=== PATIENT | male | born 1995 | race Caucasian/White ===

== ENCOUNTER 2016-10-07 11:01 | Emergency (ER) | payer MEDICARE, OTHER ==
[~2016-10-07] VITALS: Wt 60.0 kg
[~2016-10-07 11:01] MED LIST: ACET-2047 GTB; ALBU2.5V3 NEB; AZIT200S49 PO; CHLO118L3 TOP; DULR PR; FAMO-95 GTB; LORA-444 GTB; MAG355OR31 GTB; MAGN400O4 PO; MULT-552 GTB; OXYC5CAP17 GTB; PROP40TA4 GTB; UDCOL GTB
== END 2016-10-07 16:28 | disposition left against medical advice (07) ==
LOC: E/R 11:01
DX: Z53.21 Procedure and treatment not carried out due to patient leaving prior to being seen by health care provider (principal)

== ENCOUNTER 2017-01-20 09:12 | Emergency (ER) | payer MEDICARE, OTHER ==
[~2017-01-20] VITALS: Ht 177.8 cm; Wt 68.0 kg
[~2017-01-20 09:12] MED LIST changes: +BISA10SU75 PR; -DULR PR
[2017-01-20 09:14] VITALS: Ht 177.8 cm; Wt 68.0 kg
[2017-01-20] MEDS ORDERED: HYDR-902 GTB (10:52)
[2017-01-20] MEDS ORDERED: LOPE1LIQ32 GTB (10:54)
[2017-01-20] MEDS ORDERED: BISM262O PO (10:56)
[2017-01-20] MEDS ORDERED: LEVE100018 GTB (10:57)
[2017-01-20] MEDS ORDERED: METAM GTB (10:59)
[2017-01-20] MEDS ORDERED: D-ME473S2 GTB (11:00)
[2017-01-20] MEDS ORDERED: PROM5SYR2 PO (11:01)
[2017-01-20] MEDS ORDERED: PROP40SO PO (11:04)
[2017-01-20] MEDS ORDERED: ZNO30OI TOP (11:06)
[2017-01-20] MEDS ORDERED: DIATR MEGLU/DIATRIZOATE SODIUM 120 ML BTL ONE (11:51)
--- NOTE | 2017-01-20 12:26 | RADRPT ---
PROCEDURE: Gastrostomy tube check CLINICAL INDICATION: Gastrostomy tube placement.. TECHNIQUE: Single frontal view of the abdomen was obtained after injecting 40 cc of gastrographin through existing gastrostomy tube. COMPARISON: G tube check 01/12/2015 FINDINGS: Contrast is identified within the gastric lumen and proximal duodenum. There is no evidence of extr avasated contrast. There is no evidence of large or small bowel obstruction. IMPRESSION: 1. Gastrostomy tube within the gastric lumen. RPTAT: KK .Saurabh Chance MD, MD Date Time Electronically viewed and signed by .Saurabh Chance MD, on 01/20/2017 12:26 .B/
--- NOTE | 2017-01-20 12:42 | ERD ---
ER Documentation Chief Complaint Date/Time DATE: 01/20/17 TIME: 12:33 Chief Complaint trached pt with a gt tube that is bleeding around stoma and has diarrhea HPI This is a 21-year-old male who presents to the emergency room for evaluation of a PEG tube that is clogged and is "dirty". History is obtained from the patient 's caregiver and the patient's family was at bedside. This patient does have a history cognitive deficits, and necessity for trach ileostomy, PEG tube. According to family members the PEG tube has been dirty and has had intermittent clotting. The patient has also had nonbloody diarrhea for the past 2 days. ROS All systems reviewed and are negative except as per history of present illness. Medications Home Meds Reported Medications Zinc Oxide* (Zinc Oxide*) 20%-30GM Oint, 1 APPLIC TOP BID, TUB 10% APPLY TO GT STOMA 01/20/17 Propranolol Hcl (Propranolol Hcl) 40 Mg/5 Ml Solution, 40 MG PO Q12 Y for ELEVATED BLOOD PRESSURE, ML hold for sbp below 100 01/20/17 Promethazine HCl/Codeine (Prometh-Codein 6.25-10 mg/5 ml) 5 Ml Syrup, 5 ML PO TID Y for COUGH 01/20/17 Dextromethorphan Hb-Promethazine Hcl* (Promethazine DM* Syrup) 473 Ml Syrup, 5 ML GTB TID Y for COUGH, ML 01/20/17 Psyllium* (Metamucil*) 1 Pkt Susp, 1 PKT GTB BID, PACKET DISOLVE IN 8oz of water 01/20/17 Levetiracetam* (Keppra*) 1,000 Mg Tablet, 2000 MG GTB BID, TAB 01/20/17 Bismuth Subsalicylate* (Kaopectate*) 262 Mg/15 Ml Oral.susp, 30 ML PO EVERY HOUR Y for LOOSE BM, ML MAX 8 DOSES PER DAY 01/20/17 Loperamide Hcl (Imodium A-D) 1 Mg/7.5 Ml Liquid, 15-30 MG GTB PRN, ML 01/20/17 Hydrocodone/Acetaminophen (Rhododendron 10-325 Tablet) 1 Each Tablet, 1 EACH GTB Q12 Y for PAIN, TAB 01/20/17 Chlorhexidine Gluconate* (Chlorhexidine Gluconate*) 118 Ml Liquid, 118 ML TOP BID, ML 01/12/15 Multivitamins* (Once Daily*) 1 Tab Tablet, 1 TAB GTB DAILY, TAB 01/12/15 Famotidine* (Pepcid* AC) 20 Mg Tablet, 20 MG GTB DAILY 03/02/14 Discontinued Reported Medications Albuterol Sulfate* (Albuterol Sulfate* Neb) 0.083%-3 Ml Neb, 1.25 MG NEB Q4H Y for SHORTNESS OF BREATH, EA 01/12/15 Magnesium Hydroxide* (Milk Of Magnesia*) 400 Mg/5 Ml Oral.susp, 30 ML PO DAILY Y for CONSTIPATION, ML 01/12/15 Acetaminophen* (Acetaminophen*) 650 Mg Tablet, 650 MG GTB Q6 Y for FEVER GREATER THAN 100.6, TAB 01/12/15 Mag Hydrox/Al Hydrox/Simeth (Almacone Liquid) 355 Ml Oral.susp, 30 ML GTB Q4 Y for upset stomach 01/12/15 Propranolol Hcl* (Propranolol Hcl*) 40 Mg Tablet, 40 MG GTB DAILY, TAB 01/12/15 Oxycodone Hcl* (IR) (Oxycodone Hcl*) 5 Mg Capsule, 10 MG GTB Q4H Y for PAIN LEVEL 6-10, CAP 01/12/15 Lorazepam* (Ativan*) 2 Mg Tablet, 2 MG GTB Q4 Y for ANXIETY, TAB 01/12/15 Bisacodyl* (Bisacodyl*) 10 Mg Supp, 10 MG NM HS 03/02/14 Docusate Sodium* (Docusate Sodium* Liq) 50 Mg/5 Ml Liquid, 100 MG GTB BID 03/02/14 Discontinued Scripts Azithromycin* (Azithromycin*) 200 Mg/5 Ml Susp.recon, 200 MG PO DAILY for 6 Days , #1 BOTTLE Prov:STEVENSON NIEVES PA-C 07/21/16 Allergies Allergies: Coded Allergies: No Known Drug Allergy (Verified Allergy, Mild, 01/20/17) PMhx/Soc History of Surgery: Yes (BRAIN SURGERY AFTER RUPTURE OF BLOOD VESSESL. TRACH. GTUBE) Anesthesia Reaction: No Hx Respiratory Disorders: Yes (PNEUMONIA, TRACH.) Hx Cardiac Disorders: No Hx Psychiatric Problems: No Hx Miscellaneous Medical Probl: Yes (AVM) Hx Alcohol Use: No Hx Substance Use: No Hx Tobacco Use: No Smoking Status: Never smoker Physical Exam Vitals Vital Signs Date Time Temp Pulse Resp B/P Pulse Ox O2 Delivery O2 Flow Rate FiO2 01/20/17 11:49 98.6 86 22 112/76 97 Room Air 01/20/17 09:14 98.0 89 18 158/61 94 Physical Exam INITIAL VITAL SIGNS: Reviewed by me GENERAL: The patient is well developed and appropriate for usual state of health in no apparent distress HEENT: Pupils equal, round, and reactive to light. EOMI. There is no scleral icterus. NECK: Tracheostomy in place, C-spine is soft and supple, there is no meningismus. There is no cervical lymphadenopathy. LUNGS: Clear to auscultation bilaterally. There are no rales, wheezes or rhonchi. HEART: Regular rate and rhythm, no murmurs, clicks, rubs or gallops. ABDOMEN: PEG tube in place soft, non-tender, non-distended. There are bowel sounds in all four quadrants. No rebound or guarding. EXTREMITIES: There is no peripheral cyanosis or edema. No focal swelling or erythema. NEUROLOGICAL: The patient has contracted extremities SKIN: There is no apparent rash or petechiae. HEME/LYMPHATIC: There is no evidence of excessive bruising or lymphedema. PSYCHIATRIC: The patient does not appear anxious or depressed. Results 24 hrs Current Medications Medications (Trade) Dose Ordered Sig/Isaac Route PRN Reason Start Time Stop Time Status Last Admin Dose Admin Diatrizoate Meglum/ Diatrizoate Sod (Gastrografin 66-10 Solution) 120 ml STK-MED ONCE .ROUTE 01/20/17 11:51 01/20/17 11:52 DC Procedures/MDM G-tube Insertion by me: Sterile technique, local prep and lubrication, time out performed. Location: Epigastrum Device: 18 English G-tube Technique: Kiko pressure with twisting motion. Balloon inflation Results: Gastric contents expressed. Compl: none X-ray Abdomen 1V Interpreted by me: Free Air: None Bowel Gas: Nonspecific Contrast: Intraluminal This 21-year-old male presents to the emergency room for a PEG tube replacement. When I evaluated this patient he appeared to have an old approximately [address]. I did replace a PEG tube. X-ray was obtained after placement which does confirm correct placement. This patient will be discharged at this time. Patient tolerated procedure well and is in no acute distress Departure Diagnosis: Primary Impression: Status post insertion of percutaneous endoscopic gastrostomy (PEG) tube Additional Impression: PEG tube malfunction Condition: Stable ANEUDY TREVINO DO Jan 20, 2017 12:42
[2017-01-20 13:13] VITALS: BP 118/68; PULSE 80; RESP 19; TEMP 98.7
== END 2017-01-20 13:16 | disposition home or self-care (01) ==
LOC: E/R 09:12
DX: K94.23 Gastrostomy malfunction (principal)
CPT/HCPCS: 74000

== ENCOUNTER 2017-05-20 20:54 | Inpatient (IN) | payer MEDICARE, OTHER ==
[~2017-05-20] VITALS: Ht 167.6 cm; Wt 75.9 kg
[~2017-05-20 20:54] MED LIST changes: -ACET-2047 GTB; -ALBU2.5V3 NEB; -AZIT200S49 PO; -BISA10SU75 PR; +BISM262O PO; +D-ME473S2 GTB; +HYDR-902 GTB; +LEVE100018 GTB; +LOPE1LIQ32 GTB; -LORA-444 GTB; -MAG355OR31 GTB; -MAGN400O4 PO; +METAM GTB; -OXYC5CAP17 GTB; +PROM5SYR2 PO; +PROP40SO PO; -PROP40TA4 GTB; -UDCOL GTB; +ZNO30OI TOP
[2017-05-20 21:30] VITALS: TEMP 98.5
--- NOTE | 2017-05-20 22:11 | ERD ---
ER Documentation Chief Complaint Chief Complaint gtube came out today HPI The patient is 22-year-old male, presenting to the ER because he accidentally pulled up to acute a few hours prior to arrival. He is unable to provide history, the history is obtained from the mother. Past medical history: Hypertension, seizure disorder, chronic respiratory failure Past surgical history: Tracheostomy, craniotomy due to ruptured AVM ROS All systems reviewed and are negative except as per history of present illness. Medications Home Meds Reported Medications Propranolol HCl (Propranolol HCl) 20 Mg/5 Ml Solution, 20 ML GTB Q8H 05/20/17 Levetiracetam (LEVETIRACETAM) 100 Mg/1 Ml Solution, 20 ML GTB BID, ML 05/20/17 Albuterol Sulfate* (Albuterol Sulfate* Neb) 0.083%-3 Ml Neb, 1.25 MG NEB TID Y for WHEEZING AND SOB, #30 VIAL 05/20/17 Famotidine* (Pepcid* AC) 20 Mg Tablet, 20 MG GTB BID 03/02/14 Discontinued Reported Medications Zinc Oxide* (Zinc Oxide*) 20%-30GM Oint, 1 APPLIC TOP BID, TUB 10% APPLY TO GT STOMA 01/20/17 Propranolol Hcl (Propranolol Hcl) 40 Mg/5 Ml Solution, 40 MG PO Q12 Y for ELEVATED BLOOD PRESSURE, ML hold for sbp below 100 01/20/17 Promethazine HCl/Codeine (Prometh-Codein 6.25-10 mg/5 ml) 5 Ml Syrup, 5 ML PO TID Y for COUGH 01/20/17 Dextromethorphan Hb-Promethazine Hcl* (Promethazine DM* Syrup) 473 Ml Syrup, 5 ML GTB TID Y for COUGH, ML 01/20/17 Psyllium* (Metamucil*) 1 Pkt Susp, 1 PKT GTB BID, PACKET DISOLVE IN 8oz of water 01/20/17 Levetiracetam* (Keppra*) 1,000 Mg Tablet, 2000 MG GTB BID, TAB 01/20/17 Bismuth Subsalicylate* (Kaopectate*) 262 Mg/15 Ml Oral.susp, 30 ML PO EVERY HOUR Y for LOOSE BM, ML MAX 8 DOSES PER DAY 01/20/17 Loperamide Hcl (Imodium A-D) 1 Mg/7.5 Ml Liquid, 15-30 MG GTB PRN, ML 01/20/17 Hydrocodone/Acetaminophen (Barnett 10-325 Tablet) 1 Each Tablet, 1 EACH GTB Q12 Y for PAIN, TAB 01/20/17 Chlorhexidine Gluconate* (Chlorhexidine Gluconate*) 118 Ml Liquid, 118 ML TOP BID, ML 01/12/15 Multivitamins* (Once Daily*) 1 Tab Tablet, 1 TAB GTB DAILY, TAB 01/12/15 Allergies Allergies: Coded Allergies: No Known Drug Allergy (Verified Allergy, Mild, 05/20/17) PMhx/Soc History of Surgery: Yes (BRAIN SURGERY AFTER RUPTURE OF BLOOD VESSESL. TRACH. GTUBE) Anesthesia Reaction: No Hx Respiratory Disorders: Yes (PNEUMONIA, TRACH.) Hx Cardiac Disorders: No Hx Psychiatric Problems: No Hx Miscellaneous Medical Probl: Yes (AVM) Hx Alcohol Use: No Hx Substance Use: No Hx Tobacco Use: No Smoking Status: Never smoker Physical Exam Vitals Vital Signs Date Time Temp Pulse Resp B/P Pulse Ox O2 Delivery O2 Flow Rate FiO2 05/20/17 21:30 98.5 101 16 110/50 98 Room Air 05/20/17 20:56 98.6 100 18 115/69 96 Physical Exam Const: No acute distress. Head: Atraumatic. Eyes: Normal Conjunctiva. ENT: Normal External Ears, Nose and Mouth. Neck: Full range of motion. No meningismus.Tracheostomy Resp: Clear to auscultation bilaterally. Cardio: Regular rate and rhythm. Abd: Soft, non distended, normal bowel sounds, non tender.Stoma was closed with scar tissue Skin: No petechiae or rashes. Back: No midline or flank tenderness. Ext: No cyanosis, or edema. Neur: Limited due to his condition Psych: Unable to perform due to his condition. Results 24 hrs Current Medications Medications (Trade) Dose Ordered Sig/Isaac Route PRN Reason Start Time Stop Time Status Last Admin Dose Admin Sodium Chloride (NS) 1,000 ml @ 1,000 mls/hr Q1H ONCE IV 05/20/17 23:30 05/21/17 00:29 Morphine Sulfate (morphine) 2 mg ONCE ONCE IV 05/20/17 23:30 05/20/17 23:31 Ondansetron HCl (Zofran Inj) 4 mg ONCE STAT IV 05/20/17 23:04 05/20/17 23:05 DC Procedures/MDM Diagnostic labs are pending MEDICAL MAKING DECISION: The patient is a 32-year-old male, presenting with acute dislodgment after his G-tube, acute dehydration. He was treated with 1 L normal saline for clinical dehydration, morphine 2 mg IV for his generalized pain, Zofran 4 mg IV for nausea with good response. X Procedure: I have attempted to replace reinsert the gastrostomy tube but unsuccessful because the stoma was already close, unable to advance the gT-tube Departure Diagnosis: Primary Impression: Dislodged gastrostomy tube Additional Impression: Dehydration Condition: Stable Comments I discussed the findings with the patient. I discussed the patient with the on- call hospitalist Dr. Newsome at 11:10 PM who was made aware of the lab, the treatment, the patient condition. The patient is admitted to [facility] for 24 hour observation for GI evaluation and placement of the G-tube NORMAN MARTÍNEZ MD May 20, 2017 22:11
[2017-05-20] MEDS ORDERED: ALBU2.5V3 NEB (22:29)
[2017-05-20] MEDS ORDERED: LEVE100S GTB (22:31)
[2017-05-20] MEDS ORDERED: [UNRECOGNIZED DRUG - CODE] GTB (22:32)
[2017-05-20] MEDS ORDERED: ONDANSETRON 4 MG INJ IV STA (23:04)
[2017-05-20 23:26] LABS: BASOPHILS % 0.3 % (0.0-2.0); EOSINOPHILS # 0.3 10^3/ul (0.0-0.5); EOSINOPHILS % 3.3 % (0.0-7.0); HEMATOCRIT 44.3 % (42.0-52.0); HEMOGLOBIN 15.5 g/dl (14.0-18.0); LYMPHOCYTES # 2.5 10^3/ul (0.8-2.9); LYMPHOCYTES % 26.7 % (15.0-51.0); MEAN CORPUSCULAR HEMOGLOBIN 31.3 pg (29.0-33.0); MEAN CORPUSCULAR VOLUME 89.3 fl (82.0-101.0); NEUTROPHIL # 5.5 10^3/ul (1.6-7.5); NEUTROPHILS % 58.2 % (39.0-77.0); PLATELET COUNT 321 10^3/UL (140-415); RED BLOOD COUNT 4.96 10^6/ul (4.70-6.10); RED CELL DISTRIBUTION WIDTH 11.4 % (11.5-14.5); WHITE BLOOD COUNT 9.5 10^3/ul (4.8-10.8)
[2017-05-20] MEDS ORDERED: morphine 2 MG INJ IV ONE (23:30)
[2017-05-20] MEDS ORDERED: SOD CHLORIDE 0.9% 1,000 ML IV ONE (23:30)
[2017-05-20 23:44] LABS: INR 0.89; PT RATIO 0.9
[2017-05-20 23:45] LABS: PARTIAL THROMBOPLASTIN TIME 31.6 Sec (25.0-35.0)
[2017-05-20 23:50] LABS: CALCIUM 9.8 mg/dl (8.4-10.2); CREATININE 0.73 mg/dl (0.61-1.24)
[2017-05-21] VITALS (10 sets, daily range): BP systolic 95–110; BP diastolic 52–73; PULSE 88–106; RESP 16–24; Ht 167.6 cm; Wt 75.9 kg
[2017-05-21] MEDS ORDERED: NACL 0.9% 3 ML SYG IV SCH
[2017-05-21] MEDS ORDERED: morphine 2 MG INJ IV PRN
[2017-05-21] MEDS: SOD CHLORIDE 0.9% 1,000 ML IV SCH ×2 (01:25→13:14)
[2017-05-21] MEDS: FAMOTIDINE 20 MG INJ IV SCH ×3 (01:26→21:18)
[2017-05-21] MEDS: LEVETIRACETAM 1500 MG (PMX) 100 ML IVPB SCH ×3 (01:26→21:18)
[2017-05-21] MEDS: morphine 2 MG INJ IV PRN ×2 (01:27→10:21)
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
[2017-05-21] MEDS ORDERED: ALBUTEROL 0.083% (NEB) 2.5 MG/3 ML AMP NEB PRN (02:30)
[2017-05-21 06:22] LABS: BASOPHILS % 0.4 % (0.0-2.0); EOSINOPHILS # 0.3 10^3/ul (0.0-0.5); EOSINOPHILS % 3.5 % (0.0-7.0); HEMATOCRIT 44.6 % (42.0-52.0); HEMOGLOBIN 15.3 g/dl (14.0-18.0); LYMPHOCYTES # 2.4 10^3/ul (0.8-2.9); MEAN CORPUSCULAR HEMOGLOBIN 31.7 pg (29.0-33.0); MEAN CORPUSCULAR HGB CONC 34.3 g/dl (32.0-37.0); MEAN CORPUSCULAR VOLUME 92.3 fl (82.0-101.0); MEAN PLATELET VOLUME 9.2 fl (7.4-10.4); MONOCYTE # 0.9 10^3/ul (0.3-0.9); MONOCYTES % 10.1 % (0.0-11.0); NEUTROPHIL # 5.4 10^3/ul (1.6-7.5); NEUTROPHILS % 59.4 % (39.0-77.0); PLATELET COUNT 291 10^3/UL (140-415); RED BLOOD COUNT 4.83 10^6/ul (4.70-6.10); RED CELL DISTRIBUTION WIDTH 11.5 % (11.5-14.5); WHITE BLOOD COUNT 9.1 10^3/ul (4.8-10.8)
[2017-05-21 06:56] LABS: ALBUMIN 3.8 g/dl (3.3-4.9); ALBUMIN/GLOBULIN RATIO 1.05; BILIRUBIN,INDIRECT 0.3 mg/dl (0-1.1); BILIRUBIN,TOTAL 0.3 mg/dl (0.2-1.3); CALCIUM 9.2 mg/dl (8.4-10.2); CREATININE 0.81 mg/dl (0.61-1.24); POTASSIUM 4.5 mmol/L (3.5-5.1); TOTAL PROTEIN 7.4 g/dl (6.1-8.1)
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
[2017-05-21] MEDS: SOD CHLORIDE 0.45% 1,000 ML IV SCH (14:48)
[2017-05-21] MEDS ORDERED: HYDROmorphONE (0.2 MG/ML) 10ML SYG IV PRN (17:30)
[2017-05-21] MEDS ORDERED: LIDOCAINE 2% (SDV) 5 ML INJ ONE (17:30)
[2017-05-21] MEDS ORDERED: ONDANSETRON 4 MG INJ IV PRN ×2 (17:30)
[2017-05-21] MEDS ORDERED: PROPOFOL 20 ML ONE (17:30)
[2017-05-21] MEDS ORDERED: MIDAZOLAM 1 MG/ML 2 ML INJ ONE (17:31)
--- NOTE | 2017-05-21 17:59 | OPPN ---
Date/Time of Note Date/Time of Note DATE: 05/21/17 TIME: 17:53 Proc Note GI Procedure Date 05/21/17 Indication: other Pre-procedure Diagnosis dysphagia Post-procedure Diagnosis same Procedure Performed: Endoscopy, Other (percutaneous endoscopic gastrostomy) Surgeon see signature line Metal Filer none Anesthesia Type: MAC Anesthesiologist: JUSTYN CHATTERJEE MD Tourniquet Time none EBL none Transfusion required none Biopsy 1: none Grafts/Implants none Tubes/Drains none Complication(s) none Procedure Description egd peg done under GARY KUNZ MD May 21, 2017 17:59
[2017-05-22 02:00] VITALS: BP 97/53; RESP 18
[2017-05-22 03:20] VITALS: BP 92/58; PULSE 105
[2017-05-22] MEDS: SOD CHLORIDE 0.45% 1,000 ML IV SCH ×2 (03:20→06:13)
[2017-05-22 07:29] LABS: BASOPHILS % 0.2 % (0.0-2.0); EOSINOPHILS # 0.1 10^3/ul (0.0-0.5); EOSINOPHILS % 1.4 % (0.0-7.0); HEMATOCRIT 40.1 % (42.0-52.0); LYMPHOCYTES # 1.4 10^3/ul (0.8-2.9); MEAN CORPUSCULAR HEMOGLOBIN 31.6 pg (29.0-33.0); MEAN CORPUSCULAR HGB CONC 34.9 g/dl (32.0-37.0); MEAN CORPUSCULAR VOLUME 90.5 fl (82.0-101.0); MEAN PLATELET VOLUME 9.2 fl (7.4-10.4); MONOCYTES % 10.5 % (0.0-11.0); NEUTROPHIL # 6.9 10^3/ul (1.6-7.5); NEUTROPHILS % 72.5 % (39.0-77.0); PLATELET COUNT 278 10^3/UL (140-415); RED BLOOD COUNT 4.43 10^6/ul (4.70-6.10); RED CELL DISTRIBUTION WIDTH 11.4 % (11.5-14.5); WHITE BLOOD COUNT 9.5 10^3/ul (4.8-10.8)
[2017-05-22 07:47] VITALS: BP 112/65; RESP 19
[2017-05-22 08:09] LABS: CREATININE 0.72 mg/dl (0.61-1.24); POTASSIUM 4.4 mmol/L (3.5-5.1)
[2017-05-22 08:15] LABS: MAGNESIUM 1.9 mg/dl (1.7-2.5); PHOSPHORUS 4.4 mg/dl (2.5-4.9)
[2017-05-22] MEDS: morphine 2 MG INJ IV PRN (09:10)
[2017-05-22] MEDS: FAMOTIDINE 20 MG INJ IV SCH (09:10)
[2017-05-22] MEDS: LEVETIRACETAM 1500 MG (PMX) 100 ML IVPB SCH (09:10)
--- NOTE | 2017-05-22 10:59 | PDOCDIS ---
Discharge Instructions DIAGNOSIS Discharge Diagnosis Dislodged G-tube. Status post PEG tube placement. CONDITION Patient Condition: Stable HOME CARE INSTRUCTIONS: Special Diet: G-tube feedings OTHER ORDERS: Other Orders: 1. Resume home medications. 2. Continue G-tube feedings. 3. Follow-up with primary care physician as scheduled. DAVID MACHADO NP May 22, 2017 10:59
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
[2017-05-22] MEDS ORDERED: UDCOL GTB (12:16)
--- NOTE | 2017-05-24 08:12 | GILP ---
DATE OF PROCEDURE: NAME OF PROCEDURE: Esophagogastroduodenoscopy, percutaneous endoscopic gastrostomy tube placement. PREOPERATIVE DIAGNOSIS: Patient presenting with history of difficulty in swallowing and the patient had a G-tube in the past which was accidentally removed. No endoscopic gastrostomy tube placement has been requested. POSTOPERATIVE DIAGNOSIS: Patient presenting with history of difficulty in swallowing and the patien t had a G-tube in the past which was accidentally removed. No endoscopic gastrostomy tube placement has been requested. DESCRIPTION OF PROCEDURE: After informed written consent was obtained, the patient was asked to lie in the supine position. Intravenous anesthesia was given by anesthesiologist, Dr. Álvarez. When the patient became somnolent, the Olympus video upper endoscope was introduced into the oropharynx, then into the esophagus. Esophagus appeared normal. Stomach showed evidence of an old gastrostomy site . Duodenum appeared normal. At this time, the anterior abdominal wall was prepared with Betadine a nd alcohol, particularly at the gastrostomy site and the guidewire was inserted through the gastrost brenda into the stomach and the guidewire was grabbed with a polypectomy snare and then brought out thr ough the mouth along with the endoscope. To this end of the guidewire, #20 Microvasive G-tube was t ied in a loop fashion and then it was brought out through the abdominal wall incision. Retention bu mper was placed over the G-tube close to the skin. Tapered end of the gastrostomy tube was cut, the adapter was placed and the procedure was terminated. PLAN: Recommend starting G-tube feeding in a.m. Dictated By: GARY ROBERSON/FLAQUITO Conf#: [id number] DID#: [id number] CC: RIMA WAGNER MD;*EndCC*
== END 2017-05-22 13:05 | disposition home or self-care (01) | DRG 394 ==
LOC: E/R 20:54 → PP2 23:58
PROVIDERS: ADMIT Family Medicine; ATTEND Family Medicine
PROC: 0DJ08ZZ Inspection of Upper Intestinal Tract, Via Natural or Artificial Opening Endoscopic (ICD-10-PCS; 2017-05-21)
PROC: 0DH63UZ Insertion of Feeding Device into Stomach, Percutaneous Approach (ICD-10-PCS; principal; 2017-05-21 17:30)
DX: Z43.1 Encounter for attention to gastrostomy (principal); J96.10 Chronic respiratory failure, unspecified whether with hypoxia or hypercapnia; Z93.0 Tracheostomy status; R13.10 Dysphagia, unspecified; E86.0 Dehydration; G40.909 Epilepsy, unspecified, not intractable, without status epilepticus; Z87.820 Personal history of traumatic brain injury
CPT/HCPCS: 80048; 80053; 83735; 84100; 85025; 85610; 85730; 94664; 96374; 96375; 96376; J1953; J2250; J2270; J2405; J7030

== ENCOUNTER 2017-06-26 13:54 | Emergency (ER) | payer MEDICARE, OTHER ==
[~2017-06-26] VITALS: Wt 63.0 kg
[~2017-06-26 13:54] MED LIST changes: +ALBU2.5V3 NEB; -BISM262O PO; -CHLO118L3 TOP; -D-ME473S2 GTB; -HYDR-902 GTB; -LEVE100018 GTB; +LEVE100S GTB; -LOPE1LIQ32 GTB; -METAM GTB; -MULT-552 GTB; -PROM5SYR2 PO; -PROP40SO PO; +UDCOL GTB; -ZNO30OI TOP; +[UNRECOGNIZED DRUG - CODE] GTB
[2017-06-26 16:22] LABS: BASOPHILS % 0.4 % (0.0-2.0); EOSINOPHILS # 0.3 10^3/ul (0.0-0.5); EOSINOPHILS % 3.8 % (0.0-7.0); HEMATOCRIT 44.6 % (42.0-52.0); HEMOGLOBIN 15.7 g/dl (14.0-18.0); LYMPHOCYTES # 2.1 10^3/ul (0.8-2.9); LYMPHOCYTES % 25.6 % (15.0-51.0); MEAN CORPUSCULAR HEMOGLOBIN 31.2 pg (29.0-33.0); MEAN CORPUSCULAR HGB CONC 35.2 g/dl (32.0-37.0); MEAN CORPUSCULAR VOLUME 88.5 fl (82.0-101.0); MEAN PLATELET VOLUME 8.8 fl (7.4-10.4); MONOCYTE # 0.6 10^3/ul (0.3-0.9); MONOCYTES % 6.8 % (0.0-11.0); NEUTROPHIL # 5.2 10^3/ul (1.6-7.5); NEUTROPHILS % 62.8 % (39.0-77.0); PLATELET COUNT 327 10^3/UL (140-415); RED BLOOD COUNT 5.04 10^6/ul (4.70-6.10); RED CELL DISTRIBUTION WIDTH 11.6 % (11.5-14.5); WHITE BLOOD COUNT 8.2 10^3/ul (4.8-10.8)
--- NOTE | 2017-06-26 16:31 | RADRPT ---
PROCEDURE: Chest xray. CLINICAL INDICATION: Shortness of breath, cough. TECHNIQUE: A portable upright AP view of the chest was obtained. COMPARISON: 07/21/2016 FINDINGS: The tracheostomy tube is in satisfactory position. The cardiomediastinal silhouette is within normal limits. The lungs are moderately expanded and show normal vascularity. There is left basilar subse gmental airspace disease. The right lung is clear. No pleural effusion or pneumothorax is identifie d. The skeletal structures and soft tissues are unremarkable. IMPRESSION: Left basilar subsegmental airspace disease which may be related to atelectasis and / or pneumonia. Tracheostomy tube in satisfactory position. RPTAT:PP .Enedina Roman MD, MD Date Time Electronically viewed and signed by .Enedina Roman MD, on 06/26/2017 16:31 .K/
[2017-06-26 16:41] LABS: CALCIUM 9.4 mg/dl (8.4-10.2); CREATININE 0.69 mg/dl (0.61-1.24); POTASSIUM 3.6 mmol/L (3.5-5.1)
[2017-06-26] MEDS ORDERED: LEVO500T72 PO (17:28)
[2017-06-26] MEDS ORDERED: [UNRECOGNIZED DRUG - CODE] PO (17:30)
[2017-06-26] MEDS ORDERED: NAPR-688 PO (17:30)
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
[2017-06-26 17:44] VITALS: BP 102/56; PULSE 80; RESP 20; TEMP 98.1
== END 2017-06-26 17:46 | disposition home or self-care (01) ==
LOC: E/R 13:54
DX: J18.9 Pneumonia, unspecified organism (principal)
CPT/HCPCS: 71010; 80048; 85025

== ENCOUNTER 2017-10-15 14:45 | Inpatient (IN) | END 2017-10-20 16:33 | disposition home health service (06) | DRG 207 ==

== ENCOUNTER 2017-10-24 05:10 | Inpatient (IN) | END 2017-11-02 13:05 | disposition EXP | DRG 870 ==